=== PATIENT | male | born 1960 | race Caucasian/White ===

== ENCOUNTER 2024-02-06 10:14 | Outpatient (CLI) | payer OTHER, SELFPAY ==
--- NOTE | 2024-02-06 10:22 | ECG_ITS ---
Test Date: 2024-02-06 10:34:02 Measurements Intervals [place] Rate: 67 P: 69 OR: 188 QRS: -6 QRSD: 124 T: 29 QT: 384 QTc: 408 Interpretive Statements SINUS RHYTHM INCOMPLETE RIGHT BUNDLE BRANCH BLOCK INFERIOR MYOCARDIAL INFARCTION , PROBABLY OLD ABNORMAL ECG No previous ECG available for comparison Electronically Signed On 02-06-2024 10:38:35 CDT by Clive Carlin D.O.
== END 2024-02-06 10:15 | disposition home or self-care (01) ==
LOC: ANHCARD 10:15
PROVIDERS: Visit Provider Anesthesiology
DX: I10 Essential (primary) hypertension (principal); Z01.818 Encounter for other preprocedural examination; I45.10 Unspecified right bundle-branch block
CPT/HCPCS: 93005

== ENCOUNTER 2024-02-10 00:47 | Day surgery (SDC) | payer OTHER, SELFPAY ==
[2024-02-04 11:51] VITALS: BMI 42.4
--- NOTE | 2024-02-04 12:09 | SUR.PREOP ---
Report to the Outpatient Waiting Room, entrance under the green pavilion located off [facility], at time 0700 on date 02/10/24. Planned Procedure Time:0900. Time changes happen often and if your time is changed the preop area will call you the afternoon before. - You and your visitor will be asked to self-screen and do not enter if you have any COVID symptoms. - A mask is optional within the hospital at this time. Patients may have clear liquids (water, carbonated beverages, clear teas, apple juice) until 3 hours prior to surgery with a maximum of 20 ounces. - No food from midnight until time of surgery Take the following medications with a SIP of water the morning of surgery: N/A DO NOT STOP ANY OF YOUR OTHER PRESCRIPTION MEDICATIONS PRIOR TO SURGERY ?EXCEPT THE FOLLOWING Medications to discontinue per physician STOP ALL VITAMINS AND SUPPLIMENTS 3 DAYS PRIOR TO PROCEDURE Date to take last dose 02/06/24 Please no make-up, nail nauruan, hairspray, perfume, deodorant, or body powder the day of surgery. No jewelry (including any body piercings) or valuables the day of surgery, leave them at home. Please take a shower or bath the night before, or the morning of, surgery with an antibacterial soap. Wear comfortable, loose fitting clothing. Children are encouraged to wear pajamas. - Jewelry must be removed prior to entering the operating room. Rings and piercings that are not removed may be cut off. - The hospital will not accept responsibility for valuables. - Please leave all valuables, including medications, at home the day of surgery. If you are going home after surgery, a licensed special events driver must drive you home. - NO public transportation without another adult if you receive anesthesia. - We recommend that an adult stay with you for 24 hours following discharge. - We also recommend that you do not drive, make important decision, drink alcoholic beverages, or take any drugs that were not prescribed by your health care provider for at least 24 hours after your discharge time. Follow any additional instructions given to you from your surgeon. If you or anyone in your household have experienced Covid symptoms in the past week, please notify your surgeon or the nurse liaison at the phone number below for possible testing. Telephone instructions given to ERROL DIAS and asked if any additional questions and then verbalized understanding. Patient advised to call surgeon office or pre surgery nurse liaison [phone] if any additional questions.
[2024-02-10] VITALS (8 sets, daily range): BP systolic 123–141; BP diastolic 72–95; PULSE 55–96; RESP 12–18; TEMP 36.1–36.7; O2SAT 97–100
[2024-02-10] MEDS: LACTATED RINGERS 1,000 ML 30 ML IV CONT (07:37)
[2024-02-10] MEDS: ACETAMINOPHEN 500 MG TABLET 1000 MG PO (08:20)
--- NOTE | 2024-02-10 08:38 | WPDHPUPDATE1 ---
History and Physical Update Update Date/Time: 02/10/24 08:38 History and Physical has been reviewed, including an updated exam of the patient. There are NO changes in the patient's condition. Risks, benefits, and alternatives have been discussed and questions answered. Patient agrees to proceed with procedure.
--- NOTE | 2024-02-10 08:52 | P.PNAN_ITS ---
Anes - Initial Pre Proc Eval Procedure: Operation Date: 02/10/24 09:00 Proposed Procedures p Excision and CO2 Laser of Penile and Scrotal Condyloma - Jovon Cruz MD Date/Time: 02/10/24 08:52 Surgeon: Jovon Cruz MD Pre Op Diagnosis: genital warts Patient Data Age: 63 Gender: M Height: 1.79 m Weight: 136 kg Last Vital Signs Temp 98.1 F 02/10/24 07:25 Pulse 55 L 02/10/24 07:25 Resp 18 02/10/24 07:25 BP 123/91 H 02/10/24 07:25 Pulse Ox 97 02/10/24 07:25 O2 Del Method Room Air 02/10/24 07:25 Allergies Allergy/AdvReac Type Severity Reaction Status Date / Time No Known Allergies Allergy Verified 02/10/24 07:19 Home Medications Medication Instructions Recorded Confirmed Type imipramine HCl 50 mg tablet 50 mg PO DAILY 02/04/24 02/10/24 History lisinopril 10 mg tablet 10 mg PO DAILY 02/04/24 02/10/24 History meloxicam 7.5 mg tablet 7.5 mg PO DAILY 02/04/24 02/10/24 History methotrexate sodium 2.5 mg tablet 2.5 mg PO DAILY 02/04/24 02/10/24 History Patient hx anesthesia problems: none Family hx anesthesia problems: none Results Review: All pre-operative results and documents have been reviewed as part of the pre- operative evaluation. [facility] Social History Social History Smoking status: Never smoker Living arrangements: alone Spiritual care concerns: No Anes - Eval Final PreProcedure Day of Procedure 02/10/24 08:52 Patient weight: morbidly obese Heart: regular rate and rhythm Lungs: clear to auscultation Airway: Mallampati scale class II Neurological: alert and oriented Last oral intake: >/= 8 hours ASA classification: III Emergent: no Anesthetic plan: proceed Anesthesia type and monitoring: general LMA and standard monitoring Results Review: All pre-operative results and documents have been reviewed as part of the pre- operative evaluation. Informed Consent: The patient's anesthetic plan and its attendant risks and benefits were discussed with the patient/family/POA. Questions were solicited and answers provided to the satisfaction of the patient/family/POA.
[2024-02-10] MEDS: ceFAZolin 3 GM/D5W 100 ML 100 ML IVPB (09:09)
[2024-02-10] MEDS: BUPivacaine HCL 0.5% 10 ML AMP 20 ML INFILTRATE (09:32)
[2024-02-10] MEDS: NEOMYCIN/POLYMYXIN/BACITRACIN OINTMENT 15 GM TUBE 1 APPLIC TOPICAL (09:38)
--- NOTE | 2024-02-10 10:03 | P.OP_ITS ---
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 Patient taken to operating. He has given IV antibiotics. Induced anesthesia. He was prepped and draped normal sterile fashion. The 3cm right penile shaft condyloma identified it was sharply excised and in ellipsoid fashion. Lesion was sent to pathology. We then cauterized the base the lesion with the CO2 laser. Skin was reapproximated with interrupted 4- 0 chromic suture. We then focused the multiple scrotal condyloma. There were 41 scrotal condyloma all measuring approximately 2mm in size. These were each destroyed with the CO2 laser. We used acidic acid inspect for no residual lesions. Antibiotic was placed over all affected areas. A scrotal support was placed. Patient was then taken recovery room stable condition Pathology Yes Complications No immediate complications Condition Stable Disposition PACU
[2024-02-10] MEDS: oxyCODONE HCL (*CRX) 5 MG TAB IR PO (11:15)
== END 2024-02-10 11:49 | disposition home or self-care (01) ==
PROVIDERS: Visit Provider Urology
PROC: (CPT 54060; principal; 2024-02-10 09:00)
DX: A63.0 Anogenital (venereal) warts (principal); E66.01 Morbid (severe) obesity due to excess calories; Z68.41 Body mass index [BMI] 40.0-44.9, adult
CPT/HCPCS: 54060; 17111; 88305; 93005; A9270; J0690; J1100; J2250; J2405; J2704; J3010; J7120